=== PATIENT | female | born 1985 | race Caucasian/White ===

== ENCOUNTER 2021-07-06 20:13 | Outpatient (CLI) | payer MEDICAID, SELFPAY ==
[2021-07-06 20:44] VITALS: BMI 31.9
[2021-07-06 21:07] VITALS: BP 121/79; PULSE 102; RESP 18; TEMP 36.7; O2SAT 99; BMI 31.9
[2021-07-06 21:26] LABS: Microscopic, Urine URINE MICROSCOPIC (MICROSCOPIC)
[2021-07-06 21:29] LABS: Appearance,Urine SL CLOUDY (Clear); Blood, Urine Negative (Negative); Color,Urine DK YELLOW (Yellow); Glucose,Urine (UA) 1+ (Negative); Ketones,Urine 1+ (Negative); Leukocyte Esterase,Urine Negative (Negative); Nitrate,Urine Negative (Negative); Protein,Urine TRACE (Negative)
[2021-07-06 21:33] LABS: Bilirubin,Urine 1+ (Negative)
[2021-07-06 21:35] LABS: Squamous Epithelial Cell,Urine Occasional #/hpf (0-5); WBC,Urine Occasional #/hpf (0-3)
[2021-07-06 21:41] LABS: Barbiturates Screen,Urine Negative ng/ml (<200)
[2021-07-06 21:42] LABS: Amphetamine/Metha Screen,Urine Negative ng/ml (<1000); Benzodiazepines Screen,Urine Negative ng/ml (<200)
[2021-07-06 21:43] LABS: Cannabinoid Screen,Urine Negative ng/ml (<50); Cocaine Screen,Urine Negative ng/ml (<300)
[2021-07-06 21:44] LABS: Methadone Screen,Urine Negative ng/ml (<300)
[2021-07-06 21:45] LABS: Opiate Screen,Urine Negative ng/ml (<300); Phencyclidine Screen,Urine Negative ng/ml (<25)
== END 2021-07-06 22:19 | disposition home or self-care (01) ==
LOC: OBOUT 20:18 → OB 20:19
PROVIDERS: Visit Provider Obstetrics & Gynecology
DX: O60.03 Preterm labor without delivery, third trimester (principal); Z3A.35 35 weeks gestation of pregnancy
CPT/HCPCS: 59025; 80305; 81001; 96365; 96366; 96372; G0463